=== PATIENT | female | born 1960 | race Caucasian/White ===

== ENCOUNTER 2018-03-20 10:06 | Day surgery (SDC) | payer BC ==
[~2018-03-20 10:06] MED LIST: Acetaminophen IV 1GM/100ML * 1,000 MG/100 ML VIAL IVPB ONE; Buffered Lidocaine 0.9% SYRIN* 5 ML/SYR SYRINGE INTRADERM ONE; Dexamethasone IV* 4 MG/ML 1 ML (4 MG) IV SLOW PU ONE; Famotidine IV* 10 MG/ML 2 ML (20 mg) IV ONE
[2018-03-20] MEDS ORDERED: Dexamethasone IV* 4 MG/ML 1 ML (4 MG) ONE (10:08)
[2018-03-20] MEDS ORDERED: ceFAZolin 2 GM PREMIX (*) 2 GM/50 ML BAG IVPB ONE (10:08)
[2018-03-20] MEDS ORDERED: Famotidine IV* 10 MG/ML 2 ML (20 mg) ONE (10:08)
[2018-03-20] MEDS ORDERED: Acetaminophen IV 1GM/100ML * 100 ML ONE (10:14)
[2018-03-20] MEDS ORDERED: EPINEPHRINE 1 MG/ML 1 ML VIAL ONE (11:49)
[2018-03-20] MEDS ORDERED: Bupivacaine 0.5% PF 10 ML VIAL INJ ONE (11:50)
[2018-03-20] MEDS ORDERED: oxyCODONE/Acetamin 5/325 MG* TAB PO PRN (12:02)
[2018-03-20] MEDS ORDERED: Ondansetron INJ* 2 MG/ML VIAL IV PRN (12:02)
[2018-03-20] MEDS ORDERED: Levalbuterol 0.63MG/3ML NEB* UNIT OF USE INH PRN (12:02)
[2018-03-20] MEDS ORDERED: oxyCODONE TAB* 5 MG TAB PO PRN (12:02)
[2018-03-20] MEDS ORDERED: Naloxone* 0.4 MG/ML 1 ML VIAL IV PRN (12:02)
[2018-03-20] MEDS ORDERED: HYDROmorphone INJ* 0.5 MG/0.5 ML SYRINGE IV PRN (12:02)
[2018-03-20] MEDS ORDERED: diPHENhydraMINE IV* 50 MG/ML 1 ml VIAL (BENADRYL) IV PRN (12:02)
[2018-03-20] MEDS ORDERED: PROCHLORPERAZINE INJ 5 MG/ML 2 ML VIAL IV PRN (12:02)
[2018-03-20] MEDS ORDERED: fentaNYL* 50 MCG/ML 2 ML VIAL (100 MCG VIAL) IV PRN (12:02)
[2018-03-20] MEDS ORDERED: Midazolam* 1 MG/ML 2 ML VIAL (2 MG) ONE (12:19)
[2018-03-20] MEDS ORDERED: fentaNYL* 50 MCG/ML 2 ML VIAL (100 MCG VIAL) ONE (12:19)
[2018-03-20] MEDS ORDERED: Ondansetron INJ* 2 MG/ML VIAL ONE (13:50)
[2018-03-20] MEDS ORDERED: Ketorolac INJ* 30 MG/ML 1 ML VIAL ONE (13:50)
[2018-03-20] MEDS ORDERED: Propofol* 10 MG/ML 20 ML BTL IV PUSH ONE (13:52)
[2018-03-20] MEDS ORDERED: Sterile Water for Inj* 10 ML ONE (13:57)
[2018-03-20] MEDS ORDERED: EPHEDrine (Pressors)* 50 MG/ML VIAL ONE (13:57)
[2018-03-20 20:50] VITALS: BP 128/74
--- NOTE | 2018-03-23 02:35 | OP ---
DATE OF OPERATION: 03/20/18 - [facility] DATE OF : 56 SURGEON: Pieter Nieto MD [employer] R[employer]ER: None. ANESTHESIOLOGIST: Dr. Anastacia Elena. ANESTHESIA: Spinal anesthesia followed by general anesthesia. 30 cc of local placed subcutaneously, Marcaine 0.5% without epinephrine. PRE-OP DIAGNOSES: 1. Right knee lateral meniscus tear, displaced with mechanical symptoms. 2. Locked right knee. POST-OP DIAGNOSES: 1. Right knee lateral meniscus tear, displaced with mechanical symptoms. 2. Locked right knee. OPERATIVE PROCEDURE: Right knee arthroscopic partial lateral meniscectomy. ANTIBIOTICS: Ancef 2 g IV. IV FLUIDS: 1100 cc crystalloid. TOURNIQUET TIME: 31 minutes at 300 mmHg. This was longer as the patient was converted from spinal to general anesthesia. SKIN TO SKIN TIME: 26 minutes. SPECIMEN: None. COMPLICATIONS: None. IMPLANTS: None. ESTIMATED BLOOD LOSS: Minimal. 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 However, then on 03/11/18, she developed a locked knee such that she could not walk at all. I saw her on 03/12/18 and performed a reduction maneuver in the office with intraarticular anesthesia. The patient was placed in a knee brace subsequent and did not have any additional locking episodes until the date of surgery. She was in a brace that prevented her from flexing more than 60 degrees. The patient opted for surgery. We discussed the risks and potential complications of surgery including bleeding, infection, nerve or blood vessel injury, knee pain, stiffness, osteoarthritis. DESCRIPTION OF PROCEDURE: Preoperatively, the patient signed a written consent. Operative extremity was marked in preoperative holding. The patient was taken back to the operating room. The patient had a spinal anesthetic placed. A tourniquet was placed about the right proximal thigh. The distal thigh was placed in a circumferential thigh alexander. The table was elevated and the foot of the table was dropped. The right lower extremity was prepped and draped. Surgical time-out was performed. Esmarch was applied and tourniquet was elevated to 300 mmHg. An anterolateral knee arthroscopy port was established. By the patient's response, it seemed that the spinal anesthetic was not working. Therefore, anesthesiologist converted the patient to general anesthesia. I then continued the procedure. A diagnostic arthroscopy revealed no articular cartilage damage whatsoever in the patellofemoral compartment. The medial compartment revealed only some grade 1 changes about the central most aspect of the medial femoral condyle. No medial meniscus tear. No ACL or PCL tear. The lateral compartment showed some significant damage to the lateral femoral condyle with grade 1 to grade 3 changes throughout, this condyle more peripheral than central. There was also clearly a complex lateral meniscal tear. It was clearly not something that could be repaired. I established an anteromedial knee arthroscopy portal under direct visualization. I debrided the lateral meniscus back to a stable rim using arthroscopic biters and arthroscopic shaver. I alternated between working through the medial and the lateral portal to optimize my visualization and the smoothness of my work. Unfortunately, the tear clearly included the entire width of the meniscus about the body of the meniscus, so once the tear was debrided, there was a lateral capsule visible and there was essentially a defect in the body, full-thickness, of the lateral meniscus. We debrided the lateral meniscus back to a stable rim. I followed all over the lateral meniscus ensuring that I have gotten any flap. Normally when there is a locked knee, there is one large flap such as bucket- handle tear. There was not of one large flap, there were multiple, 3 or 4 small flaps, more like parrot-beak tears than bucket-handle tears. I made sure to work posterior to the posterior root in every direction about the full circumference of the meniscus. No additional flaps were appreciable. I also smoothed down some of the articular cartilage damage about the lateral femoral condyle. I removed instruments and fluid from the knee. I closed the skin incisions with [id number] 12 stitches using nylon 3-0 suture. Marcaine was injected about the subcutaneous tissue about the skin incisions. Xeroform, 4x4s, sterile Webril, Luis Alfredo bandage from foot to proximal thigh, cooling unit over the knee. Tourniquet was dropped. The patient was awakened and extubated. DISPOSITION: The patient will follow up with me in clinic 10 to 14 days postoperatively. She will start physical therapy immediately. She was given prescriptions for Percocet as needed and aspirin b.i.d. x14 days postoperatively. She was given wound care instructions. [id number]/[facility] #: [id number] [facility]ENTER[facility]iz
== END 2018-03-20 20:30 | disposition home or self-care (01) ==
LOC: OR 10:06
PROVIDERS: ATTEND Orthopaedic Surgery
DX: S83.271A Complex tear of lateral meniscus, current injury, right knee, initial encounter (principal); X50.0XXA Overexertion from strenuous movement or load, initial encounter; Y93.44 Activity, trampolining; Y92.89 Other specified places as the place of occurrence of the external cause; J45.909 Unspecified asthma, uncomplicated; J30.2 Other seasonal allergic rhinitis; E78.00 Pure hypercholesterolemia, unspecified; E78.5 Hyperlipidemia, unspecified
CPT/HCPCS: J0690; J1100; J1885; J2250; J2405; J2704; J3010